=== PATIENT | female | born 2000 | race Caucasian/White ===

== ENCOUNTER → 2023-10-01 14:34 | Outpatient (CLI) | payer OTHER, SELFPAY | PROVIDERS: PCP Physician Assistant; Visit Provider Physician Assistant | DX: R30.0 Dysuria (principal); R10.9 Unspecified abdominal pain | CPT/HCPCS: 87086 ==

== ENCOUNTER 2023-10-04 09:20 | Emergency (ER) | payer OTHER, SELFPAY ==
[2023-10-04 09:21] VITALS: BP 115/61; PULSE 85; RESP 14; TEMP 37.7; O2SAT 100
--- NOTE | 2023-10-04 09:39 | ED.GENADULT ---
HPI - General Adult General Chief complaint: Urogenital-Female Stated complaint: per pt kidney infection, fever, chills Time Seen by Provider: 10/04/23 09:28 Source: patient Mode of arrival: Ambulatory History of Present Illness HPI narrative: Patient is an otherwise healthy 23-year-old female who approximately 2 weeks ago started to have urinary tract infection like symptoms. Was seen at the clinic on [facility]. Was given a prescription for Bactrim. She states that medication was not working and she started to get quite a bit of nausea and vomiting. She states she started to have left flank pain and fevers and chills about a week ago. Was seen back in the clinic yesterday. Was given a shot of Rocephin and advised to come to the emergency department if her symptoms are not improved. She states she was here still feeling nauseous and having chills. Still having left flank pain but does feel like it is somewhat better than yesterday. Related Data Previous Rx's Medication Instructions Recorded sulfamethoxazole 800 1 tab PO BID 10 days #20 tabs 10/01/23 mg-trimethoprim 160 mg tablet (Bactrim DS) cephalexin 500 mg capsule 500 mg PO TID 10 days #30 caps 10/04/23 ondansetron 4 mg disintegrating 4 mg PO Q6H PRN nausea and 10/04/23 tablet vomiting #14 tabs Allergies Allergy/AdvReac Type Severity Reaction Status Date / Time sulfamethoxazole AdvReac Intermediate Vomiting Verified 10/04/23 09:31 [From Bactrim] trimethoprim [From Bactrim] AdvReac Intermediate Vomiting Verified 10/04/23 09:31 Review of Systems Review of Systems Narrative: See HPI Patient History Social History Smoking Status: Current some day smoker Smoking Status: Current some day smoker tobacco type: vaping alcohol intake frequency: a few times a month Substance Use Type: marijuana Exam Initial Vital Signs Initial Vital Signs: Vital Signs Temperature 99.9 F H 10/04/23 09:21 Pulse Rate 85 10/04/23 09:21 Respiratory Rate 14 10/04/23 09:21 Blood Pressure 115/61 10/04/23 09:21 Pulse Oximetry 100 10/04/23 09:21 Oxygen Delivery Method Room Air 10/04/23 09:21 Const General: cooperative, comfortable and No ill appearing [facility] Head: normal to inspection and normocephalic Resp Effort & Inspection: normal respiratory effort Cardio Rate: regular rate GI Inspection: normal to inspection and non-distended Back/Spine/Pelvis Back: CVA tenderness left Skin General: no rashes or lesions noted Neuro General: patient alert and patient awake Extrem General: capillary refill normal Course Orders Ordered: Discontinued Medications Cephalexin HCl (Cephalexin 250 Mg Capsule) 500 mg PO NOW ONE Stop: 10/04/23 09:39 Last Admin: 10/04/23 10:31 Dose: 500 mg Documented By: REINA Sodium Chloride (Normal Saline 0.9%) 1,000 mls @ 1,000 mls/hr IV BOLUS ONE Stop: 10/04/23 10:36 Last Infusion: 10/04/23 10:12 Dose: Infused Documented By: Admin: 10/04/23 09:44 Dose: 1,000 mls/hr Documented By: REINA Ketorolac Tromethamine (Ketorolac 30 Mg/Ml Vial) 30 mg IV NOW ONE Stop: 10/04/23 09:38 Last Admin: 10/04/23 09:45 Dose: 30 mg Documented By: REINA Ondansetron HCl (Ondansetron 4 Mg/2 Ml Inj) 4 mg IV NOW ONE Stop: 10/04/23 09:38 Last Admin: 10/04/23 09:45 Dose: 4 mg Documented By: REINA Vital Signs Vital signs: Vital Signs - 8 hr 10/04/23 09:21 Temperature 99.9 F H Pulse Rate 85 Respiratory Rate 14 Blood Pressure 115/61 Pulse Oximetry 100 Oxygen Delivery Method Room Air Medical Decision Making Medical Records Medical records reviewed: Yes I reviewed the patient's medical records. Lab Data Lab results reviewed: Yes I reviewed the patient's lab results. Labs: Point of Care Testing Test Results Negative Point of care testing: Point of Care Testing Test Results Negative MDM Narrative Medical decision making narrative: Patient is afebrile. Nontoxic appearing. Tolerating oral intake after medications here in the ER. Received fluids. I did review the urine culture that was done in ordered from an outside facility. It is a E coli that is sensitive to everything but Bactrim and gentamicin. Will start on Keflex. Because she was having the left flank pain in the vomiting will treat this has pyelonephritis. Antibiotics were sent to the pharmacy of her choice. There was no indication for admission to the hospital today. Discharge Plan Departure Patient Disposition: Home Clinical Impression: Pyelonephritis Instructions: DI for Kidney Infection Activity Restrictions/Additional Instructions: Recommend that you stop taking the Bactrim (sulfa based antibiotic) that has been prescribed you. The urine culture showed that the bacteria that is present is not susceptible to this antibiotic. We are going to start her on a new antibiotic today. It was sent to [facility] Along with some nausea medicine. Start taking them as directed. You can also take Tylenol/ibuprofen for discomfort. Return to the emergency department for new symptoms. Prescriptions: New ondansetron 4 mg tablet,disintegrating 4 mg PO Q6H PRN (Reason: nausea and vomiting) Qty: 14 0RF cephalexin 500 mg capsule 500 mg PO TID 10 Days Qty: 30 0RF No Action sulfamethoxazole-trimethoprim [Bactrim DS] 800-160 mg tablet 1 tab PO BID 10 Days Qty: 20 0RF Rx Instructions: Avoid sun exosure. Referrals: Dawna Ho PA-C [Primary Care Provider] - Stand Alone Forms: Patient Portal/API
[2023-10-04] MEDS: SODIUM CHLORIDE 0.9% 1,000 ML 1000 ML IV (09:44)
[2023-10-04] MEDS: KETOROLAC 30 MG/ML VIAL IV (09:45)
[2023-10-04] MEDS: ONDANSETRON 4 MG/2 ML INJ IV (09:45)
--- NOTE | 2023-10-04 09:46 | PC.NURSE ---
UTI symptoms w/ associated N/V. 1 emesis episode this morning
[2023-10-04] MEDS: cephALEXin 250 MG CAPSULE 500 MG PO (10:31)
--- NOTE | 2023-10-04 10:34 | PC.NURSE ---
PO challenge passed
[2023-10-04 11:11] VITALS: BP 96/55; PULSE 76; RESP 17; O2SAT 97
== END 2023-10-04 11:12 | disposition home or self-care (01) ==
PROVIDERS: Emergency Provider Emergency Medicine; PCP Physician Assistant
DX: N12 Tubulo-interstitial nephritis, not specified as acute or chronic (principal)
CPT/HCPCS: 36415; 81025; 96374; 96375; 99284; J1885; J2405

== ENCOUNTER → 2023-11-29 10:48 | Outpatient (CLI) | payer OTHER, SELFPAY | PROVIDERS: PCP Physician Assistant; Visit Provider Nurse Practitioner Adult Health | DX: Z11.3 Encounter for screening for infections with a predominantly sexual mode of transmission (principal) | CPT/HCPCS: 80061; 83704 ==

== ENCOUNTER → 2024-05-23 10:38 | Outpatient (CLI) | payer OTHER, SELFPAY ==
--- NOTE | 2024-05-23 10:40 | DI.US.S_ITS ---
US breast RT limited, MM diagnostic mammo BI: 05/23/2024 BI-RADS: 4 CLINICAL: 24-year old female for right diagnostic breast [place]/S. Tyrer-Cuzick lifetime risk of 26.6%. PRIOR EXAMS No prior examinations available. MAMMOGRAPHY TECHNIQUE: 2D and 3D (tomosynthesis) digital mammographic views obtained, with additional images as needed for full coverage. Current study was also evaluated with a Computer Aided Detection (CAD) system. ULTRASOUND TECHNIQUE Right Axilla. Real-time alba scale and color doppler imaging of the area of clinical interest was performed with image documentation. TARGETED Right Breast Ultrasound: Real-time ultrasound exam was performed focused to area of clinical and/or imaging concern. DENSITY C. The breasts are heterogeneously dense, which may obscure small masses. MAMMOGRAPHY FINDINGS Right (finding-1): Lower Outer at 8:00, Middle depth: A marker overlies the breast at the site of palpable abnormality; there is no underlying mammographic correlate. Left: No suspicious mass, asymmetry, microcalcification, or other abnormality seen. ULTRASOUND FINDINGS Right (finding-1): Lower Outer at 7:30, 6 cm from nipple, measuring 1.2 x 1 x 0.8 cm: Correlating with patient concern of palpable lump and also with findings on mammogram there is an irregularly shaped mass. Doppler shows internal vascularity. Right: Axilla, measuring 0.6 cm: Cortex: 0.3 cm. There is a lymph node present. Doppler shows hilar vascularity. This prominent lymph node with abnormal central hilar fat and eccentric cortical thickening. IMPRESSION: Right (Mass): Lower Outer at 7:30, 6 cm from nipple, measuring 1.2 x 1 x 0.8 cm * Suspicious findings with likelihood of malignancy. Right (Lymph Node): Axilla, measuring 0.6 cm * Suspicious findings with likelihood of malignancy. Left * No evidence of malignancy. RECOMMENDATIONS Right: Lower Outer at 7:30, 6 cm from nipple * Ultrasound-guided core biopsy for further evaluation. Right: Axilla * Ultrasound-guided core biopsy for further evaluation. COMMENTS: The above findings and recommendations were discussed with the patient by the radiologist at the time of the exam. OVERALL ASSESSMENT CATEGORY BI-RADS-4: Suspicious. ELECTRONICALLY SIGNED: Keith Nick M.D. on 05/23/2024 at 06:02:31 PM PT Interpreting Station ID: [id number]
== END ==
PROVIDERS: PCP Physician Assistant; Referring Provider Physician Assistant; Visit Provider Physician Assistant
DX: R92.8 Other abnormal and inconclusive findings on diagnostic imaging of breast (principal); N63.13 Unspecified lump in the right breast, lower outer quadrant; R92.333 Mammographic heterogeneous density, bilateral breasts; Z80.3 Family history of malignant neoplasm of breast
CPT/HCPCS: 76642; 77066; G0279

== ENCOUNTER → 2024-06-06 | Outpatient (CLI) | payer OTHER, SELFPAY ==
--- NOTE | 2024-06-06 | PATH_ITS ---
[facility] Accession Number: [id number] No. of containers..01 Tissue . 01 Material submitted: . breast - RIGHT BREAST 8:00 6CMFN PALPABLE MASS . 01 Diagnosis: RIGHT BREAST 8 O'CLOCK 6 CM FN PALPABLE MASS, IMAGE-GUIDED BIOPSIES: Invasive mammary carcinoma, ductal type, high-grade, grade 3, please see microscopic description. Combined total [place] histologic score: 8 out of possible 9 (tubule formation 3/3, nuclear pleomorphism 3/3, mitotic rate 2/3), histologic grade: 3/3, high grade. In situ carcinoma: Not definitely seen. Lymphovascular invasion: Not identified. Microcalcifications: Not identified. Greatest linear extent of invasive carcinoma: 7 mm, as measured from the glass slide. Predictive/prognostic markers: Positive for Estrogen and Progesterone Receptors, negative for HER2 by immunohistochemistry, and approximately 15-20% proliferation marker Ki67, please see microscopic description for complete biomarkers description. V 06/11/2024 1222 Local . 01 Comment: As part of ongoing chief quality officer, this case is also reviewed by Dr. Svetlana Lindsay, who agrees with the interpretation. . Results were called to Dawna Ho PA-C, on 06/10/2024 at 4:30 p.m. . 01 Electronically signed: . Shelly Santizo MD, Pathologist NPI- [id number] . 01 Gross description: . Received in formalin, labeled with two identifiers and right breast 8 o'clock 6 cm FN mass, are multiple yellow to merlos soft tissue fragments aggregating to 1.2 x 1.2 x 0.2 cm. Filtered, inked red, and submitted entirely in cassette A1. . The specimen was removed on 06/06/2024 at 10:22. Time in formalin not provided. Cold ischemic time cannot be calculated. Total fixation time is approximately 52 hours. ([id number]) /FRR 06/07/2024 1351 Local . 01 Microscopic: . To better characterize this infiltrating carcinoma, E-cadherin immunostain is performed and shows diffuse-uniform staining, supporting ductal differentiation. GATA3 is also performed as no definite in situ carcinoma is present and is positive, with diffuse-uniform staining on the infiltrating tumor cells, supporting mammary carcinoma. P63 and myosin immunostains are performed and confirm the absence of basal and myoepithelial cell layer on the infiltating carcinoma. . Predictive marker immunohistochemical studies are performed on block A1, with the invasive carcinoma showing the following results: . Estrogen Receptor (SP1): Positive (91-100%, strong intensity). Progesterone Receptor (1E2): Positive (11-20%, strong intensity). Her2 (4B5): Negative for overexpression (0). Ki-67 (MIB1): 15-20%. . Internal controls for ER and MS are positive. Cold ischemic time is <1 minute. The scoring criteria for breast biomarkers by immunohistochemistry is based on the ASCO/CAP guidelines (Carissa AC et al, J Clin Oncol: 2017 10;36(20):2442-8427 and Hwang ME et al, Arch Pathol Lab Med: 2009;134(6):907-22). Deparaffinized sections of formalin fixed tissue (along with appropriate positive controls) are incubated with the above antibody(s). Using the automated [place] stainer, tissue is incubated with the designated antibody which is then localized by a non-biotin, dual polymer detection system. The external controls are reviewed for appropriate reactivity and found to be adequate. Results on the target cell population are indicated above. These tests have not been validated on decalcified tissue. . This test was developed and the performance characteristics were validated by [employer]. It has not been cleared or approved by the U.S. Food and Drug Administration. . 01 Pathologist provided ICD-10: R59.0, N63.13, C50.811 . 01 CPT . 478269, E68419, R23495, 498698, 864220, 401120, [id number] Specimen Comment: A courtesy copy of this report has been sent to [facility] Pathology Performed at: [address] [facility] [place] [address] [address] [address], [place], [place] [id number] MD Wyatt Hawk MD Phone: [phone]
--- NOTE | 2024-06-06 | PATH_ITS ---
[facility] Accession Number: [id number] No. of containers..01 Tissue . 01 Material submitted: . lymph node - RIGHT AXILLA LYMPH NODE . 01 Diagnosis: RIGHT AXILLA LYMPH NODE, IMAGE-GUIDED BIOPSY: Minute fragments of fibroadipose tissue without lymphoid tissue. Specimen is inadequate to evaluate for lymph node pathologic abnormalities. Re-biopsy is recommended. [facility] 06/10/2024 1709 Local . 01 Comment: Initial and multiple deeper levels have been examined without lymphoid tissue present, specimen overall inadequate for evaluation. . 01 Electronically signed: . Shelly Santizo MD, Pathologist NPI- [id number] . 01 Gross description: . Received in formalin, labeled with two identifiers and right axilla LN, are multiple small, delicate, merlos to yellow soft tissue fragments aggregating to 0.3 x 0.2 x 0.1 cm. Filtered and submitted entirely in cassette A1. . The specimen was removed on 06/06/2024 at 10:23. Time in formalin not provided. Cold ischemic time cannot be calculated. Total fixation time is approximately 52 hours. ([id number]) /FRR 06/07/2024 1358 Local . 01 Pathologist provided ICD-10: R59.0, N63.15 . 01 CPT . 827016 Specimen Comment: A courtesy copy of this report has been sent to [facility] Pathology Performed at: [address] [facility] [address], [place], [place] [id number] MD Wyatt Hawk MD Phone: [phone]
--- NOTE | 2024-06-06 08:27 | DI.US.S_ITS ---
US biopsy RT axilla: 06/06/2024. CLINICAL: 24-year old female for right procedure that resulted from diagnostic mammogram on 05/23/2024. Tyrer-Cuzick lifetime risk of 31.6%. Current reported family history of breast cancer: mother. The patient had a prior right breast biopsy. PRIOR EXAMS Mammogram(s): 05/23/2024. Breast Ultrasound(s): 05/23/2024. FINDINGS Initial imaging confirmed presence and location of target(s) appropriate for biopsy. CONSENT Risks including but not limited to bleeding and infection, benefits and alternatives were discussed with the patient. The patients agreed to the procedure, reported no allergy to local anesthesia and signed the consent form. Risks including but not limited to bleeding and infection, benefits and alternatives were discussed with the patient. The patient agreed to the procedure and signed informed consent. Time out procedure was used. ROUTINE Patient positioned in the supine or supine-oblique position, prepped and draped in the usual manner using sterile technique. TECHNIQUE Right: Axilla, Level I: Procedure: Ultrasound-guided core biopsy. Device: Core biopsy instrument. Anesthesia: Local anesthesia obtained using 9 ml 1%-lidocaine. Conclusion: Ultrasound-guided Core biopsy, Right: Axilla, Level I PROCEDURE NOTE The breast was compressed to achieve hemostasis. ESTIMATED BLOOD LOSS: < 2ML. COMPLICATIONS No complications, ESTIMATED BLOOD LOSS < 2ML. DISPOSITION The patient left our department in good condition with aftercare instructions and urged to contact us should any problem arise. SUMMARY Right: Axilla, Level I: Ultrasound-guided core biopsy. RECOMMENDATIONS * Final recommendation is pending receipt of Pathology result. ELECTRONICALLY SIGNED: Kenny Cowart M.D. on 06/12/2024 at 09:33:29 AM PT Interpreting Station ID: [id number]
--- NOTE | 2024-06-06 08:27 | DI.US.S_ITS ---
US bx breast perc w vac device: 06/06/2024. Rad-Path Correlation: Pending CLINICAL: 24-year old female for right procedure that resulted from diagnostic mammogram on 05/23/2024. Tyrer-Cuzick lifetime risk of 31.6%. Current reported family history of breast cancer: mother. The patient had a prior right breast biopsy. PRIOR EXAMS Mammogram(s): 05/23/2024. Breast Ultrasound(s): 05/23/2024. FINDINGS Initial imaging confirmed presence and location of target(s) appropriate for biopsy. CONSENT Risks including but not limited to bleeding and infection, benefits and alternatives were discussed with the patient. The patient agreed to the procedure and signed informed consent. Time out procedure was used. ROUTINE Right: Patient positioned in the supine or supine-oblique position, prepped and draped in the usual manner using sterile technique. TECHNIQUE Right Breast: Lower Outer Quadrant, Mid-Depth: Procedure: Vacuum-assisted biopsy of a mass with Mini Cork marker placement. Device: 8-gauge vacuum-assisted biopsy instrument. Mammotome(R) Revolve(R) 8g. Approach: Direct. Anesthesia: Local anesthesia obtained using 5 ml 1%-lidocaine. Secondary local anesthesia obtained using 9 ml 2%-lidocaine. Skin Entry: Direct. Passes: 3. Specimens: 3. Targeting Confirmation: Real-time Observation and Post-Procedure Imaging. Marker Placement: Mini cork marker placed in target location. Specimen Imaging: Imaging shows marker present within specimen. Post-procedure imaging: Post-procedure imaging confirms the marker to be in target location. Rad/Path Correlation: Pending receipt of pathology report. Conclusion: Vacuum-assisted biopsy with post-procedure CC and ML mammographic views with marker placement, Right Breast: Lower Outer Quadrant, Mid-Depth Right: Axilla, Level I: Procedure: Core biopsy. Device: Core biopsy instrument. Conclusion: Core biopsy, Right: Axilla, Level I COMPLICATIONS: No complications were encountered while the patient was in our department. DISPOSITION The patient left our department in good condition with aftercare instructions and urged to contact us should any problem arise. The breast was compressed to achieve hemostasis. SUMMARY Right Breast: Lower Outer Quadrant, Mid-Depth: Vacuum-assisted biopsy of a mass with Mini Cork marker placement. Right: Axilla, Level I: Core biopsy. PATHOLOGY Right Breast: Lower Outer Quadrant, Mid-Depth: Radiologist-Pathologist Correlation: Pending receipt of pathology report. ELECTRONICALLY SIGNED: Kenny Cowart M.D. on 06/12/2024 at 09:32:32 AM PT Interpreting Station ID: [id number]
--- NOTE | 2024-06-06 08:28 | DI.MG.S_ITS ---
MG POST CLIP PLACEMENT RIGHT: 06/06/2024. BI-RADS: None CLINICAL: 24-year old female for right diagnostic mammogram. Mammogram is performed after US guided biopsy to assess marker location. Tyrer-Cuzick lifetime risk of 31.6%. Current reported family history of breast cancer: mother. The patient had a prior right breast biopsy. PRIOR EXAMS Mammogram(s): 05/23/2024. Breast Ultrasound(s): 05/23/2024. MAMMOGRAPHY TECHNIQUE: The examination is limited by clinical circumstance. 2 images were obtained including right CC and MLO. 2D and 3D (tomosynthesis) digital mammographic views obtained, with additional images as needed for full coverage. Current study was also evaluated with a Computer Aided Detection (CAD) system. MAMMOGRAPHY FINDINGS Right: Lower Outer at 7:30, 6 cm from nipple: There is a (Mini Cork) biopsy marker present. IMPRESSION: * Implant(s) present. Right * Biopsy marker present. OVERALL ASSESSMENT CATEGORY NOTE: For women less than 40 years of age with usual risk it is recommended to begin annual screening mammography at age 40 unless indicated sooner by clinical or patient concern. BI-RADS None: This exam requires no BI-RADS. ELECTRONICALLY SIGNED: Kenny Cowart M.D. on 07/03/2024 at 03:53:17 PM PT Interpreting Station ID: [id number]
== END ==
PROVIDERS: PCP Physician Assistant; Referring Provider Physician Assistant; Visit Provider Physician Assistant
DX: R59.0 Localized enlarged lymph nodes (principal); C50.511 Malignant neoplasm of lower-outer quadrant of right female breast; Z80.3 Family history of malignant neoplasm of breast; Z17.0 Estrogen receptor positive status [ER+]
CPT/HCPCS: 19083; 38505; 76942; 77065

== ENCOUNTER → 2024-06-12 11:22 | Outpatient (CLI) | payer OTHER, SELFPAY ==
[2024-06-12 19:22] LABS: Add Manual Diff / Slide Review NO; Basophils Absolute Auto 0 /uL (0-100); Basophils Percent Auto 0.3 % (0-2); Eosinophils Absolute Auto 0 /uL (0-450); Eosinophils Percent Auto 0.3 % (2-4); Hemoglobin 13.9 g/dL (12.0-16.0); Lymphocytes Absolute Auto 1300 /uL (1100-4500); Lymphocytes Percent Auto 21.1 % (25-40); Mean Corpuscular HGB Conc 33.9 % (30-36); Mean Corpuscular Hemoglobin 31.9 PG (26-34); Mean Corpuscular Volume 94.3 fL (80-100); Monocytes Absolute Auto 400 /uL (0-900); Monocytes Percent Auto 5.9 % (3-14); Neutrophils Absolute Auto 4400 /uL (1500-7000); Neutrophils Percent Auto 72.4 % (50-75); Platelet Count 217 X10^3/uL (150-400); Red Blood Cell Count 4.34 X10^6/uL (4.0-5.2); Red Cell Distribution Width 12.9 % (11.6-14.8); White Blood Cell Count 6.1 X10^3/uL (4.5-11.0)
[2024-06-12 19:30] LABS: Alanine Aminotransferase 17 IU/L (<35); Albumin 4.5 g/dL (3.5-5.0); Albumin Globulin Ratio 1.7 (1.0-2.8); Alkaline Phosphatase 58 U/L (38-126); Aspartate Aminotransferase 23 IU/L (14-36); BUN Creatinine Ratio 14.7 (6-22); Bilirubin Total 0.9 mg/dL (0.2-1.3); Blood Urea Nitrogen 10 mg/dL (7-17); Calcium 9.7 mg/dL (8.4-10.2); Carbon Dioxide 23 mmol/L (22-32); Chloride 103 mmol/L (98-107); Estimated Glomerular Filt Rate > 60 mL/min (>60); Globulin 2.7 g/dL (1.7-4.1); Glucose 90 mg/dL (70-100); HEMOLYSIS < 15 (0-50); Potassium 4.5 mmol/L (3.4-5.1); Sodium 136 mmol/L (137-145); Total Protein 7.2 g/dL (6.3-8.2)
[2024-06-12 19:48] LABS: Vitamin D 25 Hydroxy (D3) 18.8 ng/mL (30.0-100.0)
[2024-06-12 20:01] LABS: Thyroid Stimulating Hormone 1.73 uIU/mL (0.47-4.68)
[2024-06-12 20:20] LABS: Vitamin B12 257 pg/mL (239-931)
== END ==
PROVIDERS: PCP Physician Assistant; Visit Provider Physician Assistant
DX: C50.911 Malignant neoplasm of unspecified site of right female breast (principal); Z78.9 Other specified health status; Z79.899 Other long term (current) drug therapy
CPT/HCPCS: 80053; 82306; 82607; 84443; 85025